=== PATIENT | male | born 1965 | race Caucasian/White ===

== ENCOUNTER 2017-02-24 00:43 | Emergency (ER) | payer SELFPAY ==
[~2017-02-24] VITALS: Ht 172.7 cm; Wt 72.6 kg
[~2017-02-24 00:43] MED LIST: ASPI-605 PO; GABA600T2 PO; INSU100V7 SQ; LISI10TA5 PO; [UNRECOGNIZED DRUG - OTHER]
[2017-02-24] MEDS ORDERED: HYDROCODONE/APAP 10-325 MG TABLET PO ONE (01:45)
[2017-02-24] MEDS ORDERED: ONDANSETRON ODT 4 MG TAB.RAPDIS SL ONE (01:45)
[2017-02-24] MEDS ORDERED: HYDROCODONE/APAP 10-325 MG TABLET ONE (02:03)
[2017-02-24] MEDS ORDERED: ONDANSETRON ODT 4 MG TAB.RAPDIS ONE (02:03)
--- NOTE | 2017-02-24 03:24 | NUR ---
Patient discharged to home in stable conditon. Written and verbal after care instructions given. Patient verbalizes understanding of instructions.WALKED OUT OF ER WITH STEADY GAIT
[2017-02-24 03:26] VITALS: BP 128/88
== END 2017-02-24 03:27 | disposition home or self-care (01) ==
LOC: ER 00:46
DX: S52.601A Unspecified fracture of lower end of right ulna, initial encounter for closed fracture (principal); I10 Essential (primary) hypertension; E11.9 Type 2 diabetes mellitus without complications; F19.10 Other psychoactive substance abuse, uncomplicated; F17.200 Nicotine dependence, unspecified, uncomplicated; Z88.0 Allergy status to penicillin; Z79.82 Long term (current) use of aspirin; Z79.4 Long term (current) use of insulin; V00.131A Fall from skateboard, initial encounter; Y93.89 Activity, other specified; Y99.8 Other external cause status; Y92.89 Other specified places as the place of occurrence of the external cause
CPT/HCPCS: 73090; 73110; 73130; A4663; Q0162

== ENCOUNTER 2017-07-09 20:41 | Emergency (ER) | payer MEDICAID ==
[~2017-07-09] VITALS: Ht 172.7 cm; Wt 72.6 kg
--- NOTE | 2017-07-09 21:28 | NUR ---
ACCUCHECK performed, greater than 600, patient informed of result to which he stated "well I have places to be." MERLENED notified.
--- NOTE | 2017-07-09 22:05 | NUR ---
Patient given written and verbal discharge instructions. Patient verbalizes understanding of instructions. Patient is ambulatory with steady gait. Refuses offer of long-term placement. Patient given list of available shelters in surrounding area.
== END 2017-07-09 22:08 | disposition home or self-care (01) ==
LOC: ER 20:43
DX: Z76.0 Encounter for issue of repeat prescription (principal); I10 Essential (primary) hypertension; E10.65 Type 1 diabetes mellitus with hyperglycemia; F17.200 Nicotine dependence, unspecified, uncomplicated; Z79.4 Long term (current) use of insulin; Z79.82 Long term (current) use of aspirin; Z88.0 Allergy status to penicillin
CPT/HCPCS: 82962; 96372; 99283; 99406; A4663; J1815

== ENCOUNTER 2017-08-23 15:18 | Inpatient (IN) | payer MEDICAID ==
[~2017-08-23] VITALS: Ht 203.2 cm; Wt 71.7 kg
--- NOTE | 2017-08-23 15:40 | NUR ---
PT IS IN ROOM #2A. DR LITTLE EVALAUTED THE PT.
[2017-08-23] MEDS ORDERED: INSULIN REGULAR, HUMAN 100 UNIT in IV NORMAL SALINE 99 ML IV PRN ×4 (16:00→18:45)
[2017-08-23] MEDS ORDERED: IV NORMAL SALINE 1000 ML BAG IV ONE ×2 (16:00)
[2017-08-23 16:30] LABS: *BILIRUBIN,URIN NEGATIVE (NEGATIVE); *BLOOD, URINE NEGATIVE (NEGATIVE); *CLARITY,URINE CLEAR (CLEAR); *COLOR,URINE LIGHT YELLOW (YELLOW); *KETONES,URINE 3+ (NEGATIVE); *PROTEIN,URINE NEGATIVE (NEGATIVE); *UROBILINOGEN,URINE 0.2 E.U./dl (NORMAL); LEUKOCYTE ESTERASE ,URINE NEGATIVE (NEGATIVE); NITRITE, URINE NEGATIVE (NEGATIVE)
[2017-08-23 16:31] LABS: BASOPHILS # (AUTO) 0.1 K/uL (0.0-8.0); BASOPHILS % (AUTO) 0.8 % (0.0-2.0); EOSINOPHILS % (AUTO) 0.2 % (0.0-7.0); HEMATOCRIT 43.9 % (36.7-47.1); HEMOGLOBIN 14.9 g/dL (12.5-16.3); LYMPHOCYTES # (AUTO) 0.6 K/uL (20.0-40.0); LYMPHOCYTES % (AUTO) 5.6 % (20.5-51.5); MEAN CORPUSCULAR HEMOGLOBIN 32.6 uug (23.8-33.4); MEAN CORPUSCULAR HGB CONC 34 g/dL (32.5-36.3); MONOCYTES # (AUTO) 0.7 K/uL (2.0-10.0); MONOCYTES % (AUTO) 6.9 % (0.0-11.0); NEUTROPHILS # (AUTO) 9.4 K/uL (1.8-8.9); NEUTROPHILS % (AUTO) 86.5 % (38.5-71.5); PLATELET COUNT (AUTO) 293 K/uL (152-348); RED BLOOD CELL COUNT(AUTO) 4.58 MIL/uL (4.06-5.63); WHITE BLOOD COUNT (AUTO) 10.9 K/uL (3.6-10.2)
[2017-08-23 16:32] LABS: UGLUCOSE 2+ (NEGATIVE)
[2017-08-23 16:40] LABS: BACTERIA,URINE FEW /HPF (NONE SEEN); RBC,URINE 0-3 /HPF (0-3); SQUAMOUS EPITHELIAL CELL,UR FEW /HPF (NONE SEEN); WBC,URINE 0-3 /HPF (0-3)
[2017-08-23 16:47] LABS: BILIRUBIN,DIRECT 0.2 mg/dL (0.0-0.2); BILIRUBIN,TOTAL 0.6 mg/dL (0.2-1.0); POTASSIUM 5.3 mmol/L (3.5-5.1); TOTAL PROTEIN, SERUM 7.7 g/dL (6.4-8.2)
--- NOTE | 2017-08-23 17:51 | NUR ---
PT WAS TRANSFERED TO CCU ROOM #1. REPORT WAS GIVEN TO CCU RN MARTIN.
[2017-08-23 17:52] VITALS: BP 129/89
--- NOTE | 2017-08-23 18:00 | NUR ---
ADMIT PT TO CCU1 FROM ER VIA LEOPOLDO, 52YO MALE, WITH A CHIEF COMPLAINT OF BACK PAIN, DIABETES OUT OF CONTROL AT 512. PT IS VERY SLEEPY AND LETHARGIC BUT AROUSABLE TO CALL AND OBEYS COMMANDS. PLACE ON HEART MONITOR, SR NO ECTOPY. TEMP 98.4F ORALLY. IVF IS RUNNING NS BOLUS 2L MORE ORDERED VIA RIGHT AC G20. INSULIN DRIP IS RUNNING AT 7UNITS PER HOUR PER PROTOCOL. LAST BS IS 386.
--- NOTE | 2017-08-23 18:30 | NUR ---
NOTIFIED DR CHAVEZ OF ADMISSION FOR ADMIT ORDERS.
[2017-08-23] MEDS ORDERED: ACETAMINOPHEN 325 MG TABLET PO PRN (18:45)
[2017-08-23] MEDS ORDERED: MAGNESIUM HYDROXIDE 30 ML LIQUID UDC PO PRN (18:45)
[2017-08-23] MEDS ORDERED: MORPHINE SULFATE 2 MG/1 ML DISP.SYRIN IV PRN (18:45)
[2017-08-23] MEDS ORDERED: IV 1/2NS 1000 ML 1,000 ML IV PRN (18:45)
[2017-08-23] MEDS ORDERED: ZOLPIDEM 5 MG TABLET PO PRN (18:45)
--- NOTE | 2017-08-23 18:50 | NUR ---
NO APPARENT RESPIRATORY DISTRESS NOTED. O2 ON 3LNC.
[2017-08-23 19:00] VITALS: BP 112/65
[2017-08-23] MEDS ORDERED: MORPHINE SULFATE 4 MG/1 ML DISP.SYRIN IV PRN (19:15)
[2017-08-23] MEDS: GABAPENTIN 300 MG CAPSULE PO SCH (19:16)
--- NOTE | 2017-08-23 19:30 | NUR ---
Received SBAR report from Marybeth Kent. Patient is lethargic, resting in bed. Opens eyes to verbal/touch stimuli, but too lethargic to follow commands or answer questions. Hemodynamically stable. NSR. On 3L O2 via nasal cannula. RR and SpO2 WNL. Left antecubital peripheral IV running insulin drip per protocol, 2 RN verification. Will reassess Glucose hourly and adjust rate as appropriate. Continuing IV bolus ordered from ER. Per report, current saline bag and one additional 1000mL bag of saline to be administered to complete fluid challenge bolus. Will continue plan of care.
--- NOTE | 2017-08-23 19:45 | NUR ---
Dr. Matta at bedside for assessment. Updates given. Notified MD of right foot toe wounds; wound care consult to be ordered and possible vp software engineering.
[2017-08-23 20:00] VITALS: BP 139/81
[2017-08-23] MEDS: BLOOD SUGAR DIAGNOSTIC 1 EACH STRIP VI SCH ×4 (20:06→23:18)
[2017-08-23 21:00] VITALS: BP 141/77
[2017-08-23] MEDS: INSULIN DETEMIR 300 UNIT/3 ML CARTRIDGE SQ SCH (21:00)
[2017-08-23] MEDS ORDERED: DOCUSATE SODIUM 100 MG CAPSULE PO SCH (21:00)
--- NOTE | 2017-08-23 21:08 | NUR ---
Clarified Levemir order in addition to Insulin drip. Per Dr. Matta, hold tonight's dose and start Levemir in AM.
[2017-08-23 22:00] VITALS: BP 138/77
[2017-08-23 23:00] VITALS: BP 138/77
[2017-08-24] VITALS (9 sets, daily range): BP systolic 118–153; BP diastolic 68–90
[2017-08-24] MEDS: BLOOD SUGAR DIAGNOSTIC 1 EACH STRIP VI SCH ×10 (00:22→09:10)
[2017-08-24] MEDS: GABAPENTIN 300 MG CAPSULE PO SCH ×2 (02:23→10:07)
[2017-08-24 06:57] LABS: BILIRUBIN,TOTAL 0.4 mg/dL (0.2-1.0); MAGNESIUM 1.8 mg/dL (1.8-2.4); PHOSPHOROUS 2.8 mg/dL (2.5-4.9); POTASSIUM 3.9 mmol/L (3.5-5.1); TOTAL PROTEIN, SERUM 5.8 g/dL (6.4-8.2)
[2017-08-24] MEDS ORDERED: PANTOPRAZOLE SODIUM 40 MG TABLET.DR PO SCH (07:00)
[2017-08-24] MEDS ORDERED: MORPHINE SULFATE 4 MG/1 ML DISP.SYRIN IV PRN (07:01)
[2017-08-24 07:08] LABS: BASOPHILS % (AUTO) 0.2 % (0.0-2.0); EOSINOPHILS # (AUTO) 0.1 K/uL (0.0-0.7); EOSINOPHILS % (AUTO) 0.9 % (0.0-7.0); HEMOGLOBIN 12.9 G/DL (14.0-18.0); LYMPHOCYTES # (AUTO) 1.7 K/UL (0.8-4.8); LYMPHOCYTES % (AUTO) 14.4 % (20.5-51.5); MEAN CORPUSCULAR HEMOGLOBIN 32.4 UUG (27.0-31.0); MEAN CORPUSCULAR HGB CONC 34 g/dL (32.0-37.0); MEAN CORPUSCULAR VOLUME 95.4 FL (82.0-92.0); MONOCYTES # (AUTO) 0.9 K/UL (0.1-1.30); MONOCYTES % (AUTO) 7.7 % (0.0-11.0); NEUTROPHILS # (AUTO) 9.2 K/UL (1.8-8.9); NEUTROPHILS % (AUTO) 76.8 % (38.5-71.5); PLATELET COUNT (AUTO) 300 K/UL (150-450); RED BLOOD CELL COUNT(AUTO) 3.98 MIL/UL (4.7-6.1); THYROID STIMULATING HORMONE 0.38 mIU/mL (0.358-3.740); WHITE BLOOD COUNT (AUTO) 11.9 K/UL (4.0-11.2)
--- NOTE | 2017-08-24 07:30 | NUR ---
RECIEVED PT SLEEPING SOUNDLY IN BED.AROUSABLE TO CALL. INSULN DRIP IN PROGRESS AT 2UNITS/HR. HR IS SR NO ECTOPY. VSS. AFEBRILE.
[2017-08-24] MEDS ORDERED: VANCOMYCIN IV 1 G in PREMIXED 0 EACH IV ONE (08:30)
--- NOTE | 2017-08-24 08:30 | NUR ---
PT ATE VERY GOOD FOR BREAKFAST. NO N/V NOTED. VOIDING WELL.
[2017-08-24] MEDS: INSULIN DETEMIR 300 UNIT/3 ML CARTRIDGE SQ SCH (08:52)
[2017-08-24] MEDS ORDERED: LISINOPRIL 10 MG TABLET PO SCH (09:00)
[2017-08-24] MEDS ORDERED: ASPIRIN EC 81 MG TABLET.DR PO SCH (09:00)
--- NOTE | 2017-08-24 09:00 | NUR ---
ACCU CHECK IS 179. NOTIFIED DR CHAVEZ. INSULIN DRIP DISCONTINUED ORDERED AND REPLACE WITH AN AGGREAIVE SLIDING SCALE COVERAGE ACCU CHECK Q 4HRS. PT IS STILL LETHARGIC.
[2017-08-24] MEDS ORDERED: INSULIN REGULAR, HUMAN 300 UNITS/3 ML VIAL SQ PRN (09:30)
[2017-08-24] MEDS ORDERED: INSULIN REGULAR, HUMAN 300 UNIT/3 ML VIAL SQ PRN (09:30)
[2017-08-24] MEDS ORDERED: DEXTROSE 50% 50 ML DISP.SYRIN IV PRN (09:30)
--- NOTE | 2017-08-24 10:51 | NUR ---
Clinical Pharmacy Note: Vancomycin Pharmacy to Dose Subjective: To start vancomycin in this 52 y/o male for indication of cellulitis Objective: height 68 inches weight 71 kg BUN 21 Scr 1.0 Wbc 11.9 Temp 98.5 1gm vanco given today 08/24 at 0830 Assessment/Plan Will start regimen of 1gm q12hr for estimated trough of 15.4. Second dose due tonight at 2030. Will order trough before 4th scheduled dose (not ordered yet). Will monitor renal function and dose per level if were to appear unstable. Will follow
--- NOTE | 2017-08-24 11:00 | NUR ---
PT SLEEPING ON AND OFF.
--- NOTE | 2017-08-24 11:00 | NUR ---
DOWNGRADED TO MEDSURG STATUS PER ORDER OF DR CHAVEZ.
[2017-08-24] MEDS ORDERED: BLOOD SUGAR DIAGNOSTIC 1 EACH STRIP VI SCH ×2 (11:30)
--- NOTE | 2017-08-24 15:40 | NUR ---
PT SIGNED OUT AGAINST MEDICAL ADVICE. DR COCHRAN IN THE ROOM AND EXPLAINED THE RISK INVOLVED IN LEAVING. RAIL ASSEMBLER MADE AWARE.
[2017-08-24] MEDS ORDERED: VANCOMYCIN IV 1 G in PREMIXED 0 EACH IV SCH (20:30)
== END 2017-08-24 15:40 | disposition left against medical advice (07) | DRG 420 ==
LOC: ER 15:22 → CCU 17:25
PROVIDERS: ADMIT Internal Medicine; ATTEND Internal Medicine
DX: E10.65 Type 1 diabetes mellitus with hyperglycemia (principal); E87.0 Hyperosmolality and hypernatremia; E87.2 Acidosis; K31.84 Gastroparesis; E10.43 Type 1 diabetes mellitus with diabetic autonomic (poly)neuropathy; E87.5 Hyperkalemia; E86.0 Dehydration; A08.4 Viral intestinal infection, unspecified; I10 Essential (primary) hypertension; Z96.41 Presence of insulin pump (external) (internal); Z79.4 Long term (current) use of insulin; Z79.899 Other long term (current) drug therapy; Z79.82 Long term (current) use of aspirin; Z80.42 Family history of malignant neoplasm of prostate; Z88.0 Allergy status to penicillin; G40.909 Epilepsy, unspecified, not intractable, without status epilepticus; F12.90 Cannabis use, unspecified, uncomplicated; D50.9 Iron deficiency anemia, unspecified; R55 Syncope and collapse; Z91.14 Patient's other noncompliance with medication regimen; Z91.19 Patient's noncompliance with other medical treatment and regimen; R74.0 Nonspecific elevation of levels of transaminase and lactic acid dehydrogenase [LDH]; F19.10 Other psychoactive substance abuse, uncomplicated; L97.519 Non-pressure chronic ulcer of other part of right foot with unspecified severity; L08.9 Local infection of the skin and subcutaneous tissue, unspecified
CPT/HCPCS: 36415; 70030-TC; 71010; 83605; 83690; 83735; 84100; 84443; 85025; 87040; 87086; 93005; A4663; J1815; J3370; J3490; J7030

== ENCOUNTER 2018-03-20 05:00 | Emergency (ER) | payer MEDICAID, OTHER ==
[~2018-03-20] VITALS: Ht 172.7 cm; Wt 81.6 kg
--- NOTE | 2018-03-20 05:10 | NUR ---
PT AMBULATED TO ER WITH C/O BACK PAIN THAT STARTED AT 1300 YESTERDAY. PT STATES HE WAS HELPING HIS FRIEND MOVE AND LIFTING BOXES. AAOX4. VSS. PT HAS HX OF COMPRESSED DISCS L1/L2.
--- NOTE | 2018-03-20 05:13 | NUR ---
DR. ANTONIO AT BEDSIDE FOR MSE.
[2018-03-20] MEDS ORDERED: CYCLOBENZAPRINE HCL 10 MG TABLET ONE (05:23)
[2018-03-20] MEDS ORDERED: KETOROLAC TROMETHAMINE 60 MG INJ IM ONE ×2 (05:24→05:30)
[2018-03-20] MEDS ORDERED: HYDROMORPHONE 2 MG/1 ML DISP.SYRIN ONE (05:24)
[2018-03-20] MEDS ORDERED: CYCLOBENZAPRINE HCL 10 MG TABLET PO ONE (05:30)
[2018-03-20] MEDS ORDERED: HYDROMORPHONE 1 MG/1 ML DISP.SYRIN IM ONE (05:30)
--- NOTE | 2018-03-20 05:59 | NUR ---
Patient discharged to home in stable conditon. Written and verbal after care instructions given. Patient verbalizes understanding of instructions. Patient ambulated out of ER in steady gait. All belongings with pt. VSS. No acute distress noted. Pt states his roommate is here to give him a ride home.
[2018-03-20 06:00] VITALS: BP 152/89
== END 2018-03-20 06:01 | disposition home or self-care (01) ==
LOC: ER 05:05
DX: G89.29 Other chronic pain (principal); M54.5 Low back pain; I10 Essential (primary) hypertension; E11.9 Type 2 diabetes mellitus without complications; F17.210 Nicotine dependence, cigarettes, uncomplicated; F12.10 Cannabis abuse, uncomplicated; Z88.0 Allergy status to penicillin; Z76.0 Encounter for issue of repeat prescription; Z88.8 Allergy status to other drugs, medicaments and biological substances; Z79.82 Long term (current) use of aspirin; Z79.899 Other long term (current) drug therapy; Z79.4 Long term (current) use of insulin
CPT/HCPCS: 96372 ×2; 99284; A4663; J1170; J1885

== ENCOUNTER 2018-06-11 04:42 | Emergency (ER) | payer MEDICAID ==
[~2018-06-11] VITALS: Ht 172.7 cm; Wt 72.6 kg
--- NOTE | 2018-06-11 05:05 | NUR ---
Dr. Dennis at bedside for MSE.
--- NOTE | 2018-06-11 05:19 | NUR ---
Xray at bedside.
--- NOTE | 2018-06-11 05:53 | NUR ---
Patient discharged to home in stable conditon. Written and verbal after care instructions given. Patient verbalizes understanding of instructions. Pt ambulated out of ER with steady gait, no acute signs of distress, VSS, all belongings taken.
[2018-06-11 05:54] VITALS: BP 139/92
== END 2018-06-11 05:55 | disposition home or self-care (01) ==
LOC: ER 04:46
DX: J40 Bronchitis, not specified as acute or chronic (principal); I10 Essential (primary) hypertension; E11.9 Type 2 diabetes mellitus without complications; F17.200 Nicotine dependence, unspecified, uncomplicated; F12.10 Cannabis abuse, uncomplicated; Z88.0 Allergy status to penicillin
CPT/HCPCS: 71046; 99284; A4663

== ENCOUNTER 2022-11-15 07:29 | Emergency (ER) | payer MEDICAID ==
[~2022-11-15] VITALS: Ht 172.7 cm; Wt 68.0 kg
[~2022-11-15 07:29] MED LIST changes: +GABA600T12 PO; -GABA600T2 PO; +LISI10TA29 PO; -LISI10TA5 PO
--- NOTE | 2022-11-15 08:10 | NUR ---
Pt arrived with c/o R-sided CP, x4D, 04/05, characterzed as aching. Seen by Dr. Oreilly for MSE.
[2022-11-15] MEDS ORDERED: levoFLOXacin 750 MG TABLET PO ONE (08:30)
[2022-11-15 08:42] LABS: HEMATOCRIT 39.2 % (36.7-47.1); MEAN CORPUSCULAR HEMOGLOBIN 31.2 uug (23.8-33.4); MEAN CORPUSCULAR VOLUME 93.3 fL (73.0-96.2); PLATELET COUNT (AUTO) 378 K/uL (152-348)
[2022-11-15] MEDS ORDERED: levoFLOXacin 750 MG TABLET ONE (08:44)
[2022-11-15 08:51] LABS: CARBON DIOXIDE 28 mmol/L (21-32); CHLORIDE 98 mmol/L (98-107); CREATININE 1.1 mg/dL (0.6-1.3); GLUCOSE 141 mg/dL (74-106); POTASSIUM 3.7 mmol/L (3.5-5.1); UREA NITROGEN, BLOOD 33 mg/dL (7-18)
--- NOTE | 2022-11-15 09:51 | NUR ---
Meal given. No diet restrictions or food allergy per pt.
[2022-11-15] MEDS ORDERED: IBUPROFEN 400 MG TABLET ONE (10:46)
[2022-11-15] MEDS ORDERED: IBUPROFEN 400 MG TABLET PO ONE (11:00)
[2022-11-15] MEDS ORDERED: IBUP-1955 PO (11:10)
[2022-11-15] MEDS ORDERED: LEVO750T46 PO (11:10)
--- NOTE | 2022-11-15 11:30 | NUR ---
Patient discharged to home in stable condition. Written and verbal after care instructions given. Patient verbalizes understanding of instructions. Stressed follow up or return to ER for worsening s/s.
[2022-11-15 11:34] VITALS: BP 93/44
== END 2022-11-15 11:30 | disposition home or self-care (01) ==
LOC: ER 07:29
DX: J18.9 Pneumonia, unspecified organism (principal); R07.9 Chest pain, unspecified; D72.829 Elevated white blood cell count, unspecified; Z80.42 Family history of malignant neoplasm of prostate; I10 Essential (primary) hypertension; E11.9 Type 2 diabetes mellitus without complications; Z96.41 Presence of insulin pump (external) (internal); Z79.4 Long term (current) use of insulin
CPT/HCPCS: 36415; 71045; 84484; 85025; 93005; A4663

== ENCOUNTER 2022-11-21 15:22 | Emergency (ER) | payer MEDICAID ==
[~2022-11-21] VITALS: Ht 172.7 cm; Wt 70.3 kg
[~2022-11-21 15:22] MED LIST changes: +IBUP-1955 PO; +LEVO750T46 PO
--- NOTE | 2022-11-21 15:40 | NUR ---
Pt was triaged and placed back in ER waiting room, no ER beds available at this time. Accu [id number].
--- NOTE | 2022-11-21 16:40 | NUR ---
Pt ambulatory to room 2B.
--- NOTE | 2022-11-21 17:06 | NUR ---
PT REFUSED BLOOD DRIVE. DR HENAO NJOTIFIED.
--- NOTE | 2022-11-21 17:22 | NUR ---
PT DECIDED TO LEAVE HOSPITAL AMA. DR HENAO EXPLAINED ALL RISKS OF LEAVING HOSPITAL AMA. PT VERBALIZED FULL UNDERSTANDING. PT SIGNED AMA FORM AND LEFT HOSPITAL ER WITH HIS FRIEND. GAIT WAS STABLE, NO S/S OF ACUTE DISTRESS.
[2022-11-21 17:26] VITALS: BP 126/81
== END 2022-11-21 17:35 | disposition left against medical advice (07) ==
LOC: ER 15:22
DX: T38.3X1A Poisoning by insulin and oral hypoglycemic [antidiabetic] drugs, accidental (unintentional), initial encounter (principal); E09.649 Drug or chemical induced diabetes mellitus with hypoglycemia without coma; Y92.89 Other specified places as the place of occurrence of the external cause; Z79.4 Long term (current) use of insulin; Z79.82 Long term (current) use of aspirin; Z80.42 Family history of malignant neoplasm of prostate; Z88.0 Allergy status to penicillin; I10 Essential (primary) hypertension; Z53.29 Procedure and treatment not carried out because of patient's decision for other reasons; Z86.69 Personal history of other diseases of the nervous system and sense organs
CPT/HCPCS: A4663

== ENCOUNTER 2024-08-11 09:41 | Emergency (ER) | payer MEDICAID ==
[~2024-08-11] VITALS: Ht 172.7 cm; Wt 72.6 kg
[2024-08-11] MEDS: IV NORMAL SALINE 1000 ML BAG IV ONE ×2 (10:54→12:58)
[2024-08-11] MEDS ORDERED: OMEP20CA16 PO (11:05)
[2024-08-11] MEDS ORDERED: INSU100V SUBCUT/PO (11:05)
[2024-08-11] MEDS ORDERED: LOSA100T31 PO (11:05)
[2024-08-11] MEDS ORDERED: ASPI-1169 PO (11:05)
[2024-08-11] MEDS ORDERED: AMLO10TA59 PO (11:05)
[2024-08-11] MEDS ORDERED: BUPR1FIL3 SL (11:05)
[2024-08-11] MEDS ORDERED: INSU3INS6 SQ (11:05)
[2024-08-11] MEDS ORDERED: ROSU10TA29 PO (11:05)
[2024-08-11 11:16] LABS: *BILIRUBIN,URIN NEGATIVE (NEGATIVE); *BLOOD, URINE NEGATIVE (NEGATIVE); *CLARITY,URINE CLEAR (CLEAR); *COLOR,URINE YELLOW (YELLOW); *KETONES,URINE NEGATIVE (NEGATIVE); *PROTEIN,URINE NEGATIVE (NEGATIVE); *UROBILINOGEN,URINE 0.2 E.U./dl (NORMAL); BASOPHILS # (AUTO) 0.1 K/UL (0.0-0.2); BASOPHILS % (AUTO) 1.1 % (0.0-2.0); EOSINOPHILS # (AUTO) 0.1 K/uL (0.0-0.7); HEMATOCRIT 40.1 % (36.7-47.1); HEMOGLOBIN 13.2 g/dL (12.5-16.3); LEUKOCYTE ESTERASE ,URINE NEGATIVE (NEGATIVE); LYMPHOCYTES # (AUTO) 0.8 K/uL (0.8-4.8); LYMPHOCYTES % (AUTO) 13.7 % (20.5-51.5); MEAN CORPUSCULAR HEMOGLOBIN 31.6 uug (23.8-33.4); MEAN CORPUSCULAR HGB CONC 33 g/dL (32.5-36.3); MONOCYTES # (AUTO) 0.4 K/uL (0.1-1.30); MONOCYTES % (AUTO) 6.6 % (0.0-11.0); NEUTROPHILS # (AUTO) 4.3 K/uL (1.8-8.9); NEUTROPHILS % (AUTO) 76.6 % (38.5-71.5); NITRITE, URINE NEGATIVE (NEGATIVE); PLATELET COUNT (AUTO) 204 K/uL (152-348); RED BLOOD CELL COUNT(AUTO) 4.18 MIL/uL (4.06-5.63); RED CELL DISTRIBUTION WIDTH 14.5 % (12.1-16.2); UGLUCOSE 2+ (NEGATIVE); WHITE BLOOD COUNT (AUTO) 5.7 K/uL (3.6-10.2)
[2024-08-11 11:48] LABS: ALANINE AMINOTRANSFERASE 36 U/L (16-63); ALBUMIN 3.6 g/dL (3.4-5.0); ALKALINE PHOSPHATASE 248 U/L (50-136); ASPARTATE AMINOTRANSFERASE 24 U/L (15-37); BILIRUBIN,DIRECT 0.1 mg/dL (0.0-0.2); BILIRUBIN,TOTAL 0.3 mg/dL (0.2-1.0); CALCIUM 8.5 mg/dL (8.5-10.1); CARBON DIOXIDE 25 mmol/L (21-32); CHLORIDE 93 mmol/L (98-107); CREATININE 1.1 mg/dL (0.6-1.3); NT-PRO BNP 90 pg/mL (0-125); POTASSIUM 5.6 mmol/L (3.5-5.1); SODIUM SERUM 125 mmol/L (136-145); TOTAL PROTEIN, SERUM 7.2 g/dL (6.4-8.2); UREA NITROGEN, BLOOD 21 mg/dL (7-18)
[2024-08-11 12:04] LABS: *AMPHETAMINE, URINE POSITIVE (NEGATIVE); *BARBITURATE, URINE NEGATIVE (NEGATIVE); *BENZODIAZEPINE, URINE NEGATIVE (NEGATIVE); *CANNABINOID, URINE POSITIVE (NEGATIVE); *COCCAINE, URINE NEGATIVE (NEGATIVE); *OPIATE, URINE POSITIVE (NEGATIVE); *PHENCYCLIDINE SCREEN,URINE NEGATIVE (NEGATIVE); FENTANYL, URINE NEGATIVE (NEGATIVE)
[2024-08-11 12:22] LABS: ETHANOL < 3 MG/DL (0-10)
[2024-08-11 12:24] LABS: ACETAMINOPHEN < 10.0 ug/mL (10-30)
[2024-08-11 12:26] LABS: DIFFERENTIAL COMMENT 1
[2024-08-11] MEDS ORDERED: INSULIN REGULAR, HUMAN 1000 UNIT/10 ML VIAL ONE (12:49)
[2024-08-11] MEDS: INSULIN REGULAR, HUMAN 1000 UNIT/10 ML VIAL IV ONE ×2 (12:58→15:16)
[2024-08-11 12:59] LABS: ABG BASE EXCESS -1.9 mmol/L (-2.0-3.0); ABG HCO3 23.9 mmol/L (21.0-28.0); ABG PCO2 44.8 mmHg (35.0-48.0); ABG PH 7.345 (7.350-7.450); ABG PO2 76.1 mmHg (83.0-108.0); ABG SITE RIGHT RADIAL; ABG TOTAL HEMOGLOBIN 13.5 G/dL (13.5-17.5); AaDO2 94.5 mmHg; COHb 0.6 % (0.5-1.5); MetHb 0.1 % (0.0-1.5); O2Hb 93.3 % (94.0-98.0)
[2024-08-11 13:16] LABS: BACTERIA,URINE NONE SEEN /HPF (NONE SEEN); RBC,URINE NONE SEEN /HPF (0-3); SQUAMOUS EPITHELIAL CELL,UR FEW /HPF (NONE SEEN); WBC,URINE 0-3 /HPF (0-3)
[2024-08-11] MEDS: IV NS 1000 ML 1,000 ML IV PRN (16:13)
[2024-08-11] MEDS: IV NS 1000 ML 1,000 ML IV ONE (16:13)
[2024-08-11] MEDS ORDERED: PANTOPRAZOLE SODIUM IV 40 MG in IV DEXTROSE 5% 100 ML IV SCH (16:30)
[2024-08-11] MEDS ORDERED: GABAPENTIN 400 MG CAPSULE PO SCH (17:00)
[2024-08-11] MEDS ORDERED: ATORVASTATIN 10 MG TABLET PO SCH (21:00)
[2024-08-12] MEDS: INSULIN REGULAR, HUMAN 1000 UNIT/10 ML VIAL SQ ONE (06:00)
[2024-08-12 06:34] VITALS: BP 125/69; TEMP 98.6; O2SAT 99
[2024-08-12] MEDS ORDERED: LISINOPRIL 10 MG TABLET PO SCH ×2 (09:00)
[2024-08-12] MEDS ORDERED: ASPIRIN EC 81 MG TABLET.DR PO SCH (09:00)
[2024-08-12] MEDS ORDERED: GABAPENTIN 400 MG CAPSULE PO SCH (09:00)
[2024-08-12] MEDS ORDERED: AMLODIPINE 10 MG TABLET PO SCH (09:00)
[2024-08-12] MEDS ORDERED: ATORVASTATIN 10 MG TABLET PO SCH (21:00)
== END 2024-08-12 06:34 | disposition home or self-care (01) ==
LOC: ER 09:41
DX: E11.65 Type 2 diabetes mellitus with hyperglycemia (principal); F19.10 Other psychoactive substance abuse, uncomplicated; I11.9 Hypertensive heart disease without heart failure; R51.9 Headache, unspecified; Z79.82 Long term (current) use of aspirin; Z79.4 Long term (current) use of insulin; Z20.822 Contact with and (suspected) exposure to COVID-19; Z79.899 Other long term (current) drug therapy; Z59.00 Homelessness unspecified; Z88.0 Allergy status to penicillin; Z88.7 Allergy status to serum and vaccine
CPT/HCPCS: 80076; 80048; 81001; 82009; 82962 ×7; 83880; 85025; 84145; 85730; 87426; 87040 ×2; 84484; 36415; 71045; 70450; 99285; 96361; 96374; 96376; 83605; 87086; 80299; 80320; 80307; 36600; 96372; J1815; J7040 ×4; A4606; A4663; G0480